=== PATIENT | male | born 1935 | race Caucasian/White ===

== ENCOUNTER 2016-11-21 21:05 | Inpatient (IN) | payer OTHER ==
[~2016-11-21] VITALS: Ht 172.7 cm; Wt 81.6 kg
--- NOTE | ~2016-11-21 | EKG ---
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
[~2016-11-21 21:05] MED LIST: BUSPIRONE HCL10 MG PO; CLARITIN10 MG PO; FLOMAX0.4 MG PO; IBUPROFEN 600600 M1 PO; LEXAPRO 10 MG T10 M1 PO; MILK OF MA2400 MG/10 PO; PEPTO-BISM262 MG/15 PO; TROSPIUM CHLORI20 MG PO; VIMPAT100 MG PO
[2016-11-21 21:07] VITALS: BP 169/81
[2016-11-21] MEDS ORDERED: MINERIN CREME454 GM TOP (21:15)
[2016-11-21] MEDS ORDERED: BISMATROL262 MG/15 PO (21:15)
[2016-11-21 21:17] LABS: ABSOLUTE NEUTROPHILS 2.8 thou/uL (1.4-8.2); BASOPHILS 0.6 % (0.0-2.0); EOSINOPHILS 3.2 % (0.0-3.0); HEMATOCRIT 37.4 % (42.0-52.0); HEMOGLOBIN 12.9 gm/dL (14.0-18.0); LYMPHOCYTES 42.2 % (24.0-44.0); MCH 31.4 pg (26.0-34.0); MCHC 34.5 g/dL (28.0-37.0); MCV 91.1 fL (80.0-100.0); MONOCYTES 9.9 % (1.0-8.0); PLATELET COUNT 184 thou/uL (150-400); POLYS 44.1 % (36.0-66.0); RBC 4.11 mil/uL (4.50-6.00); RDW 12.9 % (10.5-14.5); WBC 6.3 thou/uL (4.0-11.0)
[2016-11-21] MEDS ORDERED: SYSTANE ULTRA 010 ML OPHTHALMIC (21:19)
[2016-11-21] MEDS ORDERED: VITAMIN D2000 UNIT PO (21:19)
[2016-11-21 21:20] LABS: MANUAL DIFF NO
[2016-11-21] MEDS ORDERED: BUSPIRONE HCL15 MG PO ×2 (21:21→21:22)
[2016-11-21] MEDS ORDERED: PERIDEX 0.12%473 M1 SWISH&SPIT (21:27)
[2016-11-21 21:33] LABS: ALBUMIN 2.3 g/dL (3.4-5.0); ALKALINE PHOSPHATASE 92 U/L (46-116); ANION GAP 7 mmol/L (7-16); BUN 14 mg/dL (7-18); CHLORIDE 114 mmol/L (98-107); CO2 19 mmol/L (21-32); CREATININE 0.8 mg/dL (0.7-1.3); GLUCOSE 108 mg/dL (74-106); MAGNESIUM 1.2 mg/dL (1.8-2.4); SGOT 16 U/L (15-37); SGPT 25 U/L (30-65); SODIUM 140 mmol/L (136-145); TOTAL BILIRUBIN 0.2 mg/dL (<0.1-1.0); TOTAL PROTEIN 4.9 g/dL (6.4-8.2); TROPONIN-I < 0.04 ng/mL (<0.04-0.07)
[2016-11-21 21:35] LABS: CALCIUM 5.6 mg/dL (8.5-10.1); POTASSIUM 2.5 mmol/L (3.5-5.1)
[2016-11-21 22:56] LABS: URINE BILIRUBIN NEGATIVE (Negative); URINE BLOOD NEGATIVE (Negative); URINE COLOR YELLOW; URINE GLUCOSE-RANDOM* NEGATIVE (Negative); URINE KETONES NEGATIVE (Negative); URINE LEUKOCYTES-REFLEX NEGATIVE (Negative); URINE PROTEIN (DIPSTICK) NEGATIVE (Negative); URINE UROBILINOGEN 0.2 E.U./dl (0.2-1.0)
[2016-11-22] VITALS (7 sets, daily range): BP systolic 125–154; BP diastolic 71–86
[2016-11-22 06:41] LABS: HEMATOCRIT 38.7 % (42.0-52.0); HEMOGLOBIN 12.7 gm/dL (14.0-18.0); MCH 29.9 pg (26.0-34.0); MCHC 32.7 g/dL (28.0-37.0); MCV 91.3 fL (80.0-100.0); RBC 4.24 mil/uL (4.50-6.00); RDW 13.3 % (10.5-14.5); WBC 7.4 thou/uL (4.0-11.0)
[2016-11-22 06:54] LABS: ALBUMIN 3.3 g/dL (3.4-5.0); ALKALINE PHOSPHATASE 104 U/L (46-116); ANION GAP 5 mmol/L (7-16); BUN 12 mg/dL (7-18); CHLORIDE 105 mmol/L (98-107); CHOLESTEROL 143 mg/dL (<200); CO2 27 mmol/L (21-32); GLUCOSE 102 mg/dL (74-106); HDL CHOLESTEROL 36 mg/dL (>40); LDL CHOLESTEROL 75 mg/dL (<100); SGOT 23 U/L (15-37); SGPT 37 U/L (30-65); SODIUM 137 mmol/L (136-145); TOTAL BILIRUBIN 0.4 mg/dL (<0.1-1.0); TOTAL PROTEIN 6.9 g/dL (6.4-8.2); TRIGLYCERIDE 163 mg/dL (<150); VLDL 33 mg/dL (<40)
[2016-11-22 06:56] LABS: POTASSIUM 4.2 mmol/L (3.5-5.1)
[2016-11-22 06:59] LABS: CALCIUM 8.1 mg/dL (8.5-10.1)
[2016-11-23 01:06] LABS: GLYCOHEMOGLOBIN (HGB A1C) 5.4 % (4.8-5.6)
[2016-11-23 04:20] VITALS: BP 129/70
[2016-11-23 04:57] LABS: ABSOLUTE NEUTROPHILS 6.3 thou/uL (1.4-8.2); BASOPHILS 0.4 % (0.0-2.0); EOSINOPHILS 2.7 % (0.0-3.0); HEMATOCRIT 36.8 % (42.0-52.0); HEMOGLOBIN 12.6 gm/dL (14.0-18.0); LYMPHOCYTES 21.3 % (24.0-44.0); MCH 30.7 pg (26.0-34.0); MCHC 34.1 g/dL (28.0-37.0); MONOCYTES 9.9 % (1.0-8.0); PLATELET COUNT 180 thou/uL (150-400); POLYS 65.7 % (36.0-66.0); RBC 4.09 mil/uL (4.50-6.00); RDW 13.4 % (10.5-14.5); WBC 9.6 thou/uL (4.0-11.0)
[2016-11-23 05:00] LABS: MANUAL DIFF NO
[2016-11-23 05:10] LABS: CALCIUM 7.8 mg/dL (8.5-10.1); POTASSIUM 4.4 mmol/L (3.5-5.1); TOTAL BILIRUBIN 0.5 mg/dL (<0.1-1.0); TOTAL PROTEIN 6.5 g/dL (6.4-8.2)
[2016-11-23 07:16] VITALS: BP 109/44
[2016-11-23 09:01] LABS: TSH 0.922 uIU/mL (0.358-3.740)
[2016-11-23 14:09] LABS: FREE T4 1.03 ng/dL (0.82-1.77)
[2016-11-23 17:03] VITALS: BP 123/65
[2016-11-23 19:39] VITALS: BP 126/73
[2016-11-24 03:08] VITALS: BP 139/93
[2016-11-24 07:33] VITALS: BP 137/87
[2016-11-24 11:24] VITALS: BP 153/87
[2016-11-24] MEDS ORDERED: VIMPAT50 MG PO (11:53)
[2016-11-24 12:16] VITALS: BP 153/87
[2016-11-25 05:12] LABS: GLYCOHEMOGLOBIN (HGB A1C) 5.4 % (4.8-5.6)
== END 2016-11-24 14:50 | disposition home or self-care (01) | DRG 100 ==
LOC: ER 21:05 → EROBS 11-22 00:02 → 4W 11-22 00:02
PROVIDERS: Emergency Medicine; Internal Medicine; Nurse Practitioner Family; Psychiatry & Neurology Neurology
DX: R56.9 Unspecified convulsions (principal); G93.40 Encephalopathy, unspecified; E87.6 Hypokalemia; E83.42 Hypomagnesemia; R53.81 Other malaise; W18.39XA Other fall on same level, initial encounter; Y93.89 Activity, other specified; Z79.899 Other long term (current) drug therapy; Z88.8 Allergy status to other drugs, medicaments and biological substances; Y92.89 Other specified places as the place of occurrence of the external cause; Y99.8 Other external cause status
CPT/HCPCS: 10045

== ENCOUNTER 2017-02-12 09:23 | Emergency (ER) | payer OTHER ==
[~2017-02-12] VITALS: Ht 167.6 cm; Wt 63.5 kg
[~2017-02-12 09:23] MED LIST changes: +BISMATROL262 MG/15 PO; +BUSPIRONE HCL15 MG PO; +MINERIN CREME454 GM TOP; +PERIDEX 0.12%473 M1 SWISH&SPIT; +SYSTANE ULTRA 010 ML OPHTHALMIC; +VIMPAT50 MG PO; +VITAMIN D2000 UNIT PO
[2017-02-12] MEDS ORDERED: VENTOLIN HFA 1818 GM INH (10:12)
== END 2017-02-12 10:26 | disposition home or self-care (01) ==
LOC: EDBD 09:23 → ER 09:23
DX: T42.6X1A Poisoning by other antiepileptic and sedative-hypnotic drugs, accidental (unintentional), initial encounter (principal); T42.4X1A Poisoning by benzodiazepines, accidental (unintentional), initial encounter; J98.01 Acute bronchospasm; Z88.8 Allergy status to other drugs, medicaments and biological substances; Y92.89 Other specified places as the place of occurrence of the external cause

== ENCOUNTER 2017-08-03 11:49 | Inpatient (IN) | payer OTHER ==
[~2017-08-03] VITALS: Ht 175.3 cm; Wt 70.4 kg
[2017-08-03 11:49] VITALS: BP 146/89
[~2017-08-03 11:49] MED LIST changes: +VENTOLIN HFA 1818 GM INH
[2017-08-03 12:49] LABS: ABSOLUTE NEUTROPHILS 3.3 thou/uL (1.4-8.2); BASOPHILS 0.9 % (0.0-2.0); CALCIUM 8.8 mg/dL (8.5-10.1); CREATININE 1.3 mg/dL (0.7-1.3); EOSINOPHILS 5.6 % (0.0-3.0); HEMATOCRIT 41.6 % (42.0-52.0); HEMOGLOBIN 14.3 gm/dL (14.0-18.0); MCH 31.1 pg (26.0-34.0); MCHC 34.3 g/dL (28.0-37.0); MCV 90.7 fL (80.0-100.0); MONOCYTES 11.7 % (1.0-8.0); PLATELET COUNT 241 thou/uL (150-400); POLYS 46.8 % (36.0-66.0); POTASSIUM 4.5 mmol/L (3.5-5.1); RBC 4.59 mil/uL (4.50-6.00); RDW 13.3 % (10.5-14.5)
[2017-08-03 12:55] LABS: ALBUMIN 3.7 g/dL (3.4-5.0); TOTAL BILIRUBIN 0.4 mg/dL (<0.1-1.0); TOTAL PROTEIN 8.2 g/dL (6.4-8.2)
[2017-08-03 13:21] VITALS: BP 146/89
[2017-08-03 14:40] VITALS: BP 135/82
[2017-08-03 16:00] VITALS: BP 140/82
[2017-08-03] MEDS ORDERED: ARICEPT 5 MG TAB5 MG PO (16:06)
[2017-08-03] MEDS ORDERED: CERAVE237 ML TOP (16:07)
[2017-08-03] MEDS ORDERED: REMERON15 MG PO (16:08)
[2017-08-03] MEDS ORDERED: ENSURE PLUS237 ML PO ×2 (16:11→16:12)
[2017-08-03] MEDS ORDERED: HYDROXYZINE HCL10 M2 PO (16:13)
[2017-08-03] MEDS ORDERED: PETROLATUM TOP (16:14)
[2017-08-03] MEDS ORDERED: VIMPAT150 MG PO (16:15)
[2017-08-03 19:35] VITALS: BP 117/72
[2017-08-04 03:30] VITALS: BP 101/56
[2017-08-04 08:00] VITALS: BP 104/58
[2017-08-04 16:00] VITALS: BP 116/60
[2017-08-04 20:00] VITALS: BP 119/67
[2017-08-05 03:14] VITALS: BP 110/60
[2017-08-05 08:00] VITALS: BP 132/80
[2017-08-05] MEDS ORDERED: TAMIFLU30 MG PO (10:50)
[2017-08-05] MEDS ORDERED: ALBUTEROL2.5 MG/31 INH (14:25)
== END 2017-08-05 15:17 | disposition home or self-care (01) | DRG 153 ==
LOC: ER 11:49 → EROBS 13:12 → 4S 13:12 → EDBD 08-05 15:17 → 4S 08-05 15:17
PROVIDERS: Physician Assistant
DX: J11.1 Influenza due to unidentified influenza virus with other respiratory manifestations (principal); K21.9 Gastro-esophageal reflux disease without esophagitis; R56.9 Unspecified convulsions; Z79.899 Other long term (current) drug therapy; Z88.8 Allergy status to other drugs, medicaments and biological substances; Z87.891 Personal history of nicotine dependence
CPT/HCPCS: 10195

== ENCOUNTER 2017-09-10 13:05 | Emergency (ER) | payer OTHER ==
[~2017-09-10] VITALS: Ht 172.7 cm; Wt 69.8 kg
--- NOTE | ~2017-09-10 | EKG ---
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
[~2017-09-10 13:05] MED LIST changes: +ALBUTEROL2.5 MG/31 INH; +ARICEPT 5 MG TAB5 MG PO; +CERAVE237 ML TOP; +ENSURE PLUS237 ML PO; +HYDROXYZINE HCL10 M2 PO; +PETROLATUM TOP; +REMERON15 MG PO; +TAMIFLU30 MG PO; +VIMPAT150 MG PO
[2017-09-10 13:49] LABS: ABSOLUTE NEUTROPHILS 10.8 thou/uL (1.4-8.2); BASOPHILS 0.5 % (0.0-2.0); EOSINOPHILS 0.4 % (0.0-3.0); HEMATOCRIT 39.5 % (42.0-52.0); HEMOGLOBIN 13.1 gm/dL (14.0-18.0); LYMPHOCYTES 13.5 % (24.0-44.0); MCH 30.1 pg (26.0-34.0); MCHC 33.3 g/dL (28.0-37.0); MCV 90.2 fL (80.0-100.0); MONOCYTES 10.2 % (1.0-8.0); PLATELET COUNT 380 thou/uL (150-400); POLYS 75.4 % (36.0-66.0); RBC 4.37 mil/uL (4.50-6.00); RDW 12.7 % (10.5-14.5); WBC 14.3 thou/uL (4.0-11.0)
[2017-09-10 13:53] LABS: ANION GAP 9 mmol/L (7-16); BUN 20 mg/dL (7-18); CALCIUM 9.1 mg/dL (8.5-10.1); CHLORIDE 98 mmol/L (98-107); CO2 26 mmol/L (21-32); CREATININE 1.3 mg/dL (0.7-1.3); GLUCOSE 137 mg/dL (74-106); POTASSIUM 4.7 mmol/L (3.5-5.1); SODIUM 133 mmol/L (136-145)
[2017-09-10 14:03] LABS: TROPONIN-I < 0.04 ng/mL (<0.06)
[2017-09-10] MEDS ORDERED: ALBUTEROL2.5 MG/31 INH (14:39)
[2017-09-10] MEDS ORDERED: ZPAK PO (15:19)
== END 2017-09-10 15:25 | disposition home or self-care (01) ==
LOC: ER 13:05
PROVIDERS: Nurse Practitioner
DX: J18.9 Pneumonia, unspecified organism (principal); F17.210 Nicotine dependence, cigarettes, uncomplicated; Z88.8 Allergy status to other drugs, medicaments and biological substances

== ENCOUNTER 2017-09-11 15:26 | Inpatient (IN) | payer OTHER ==
[~2017-09-11] VITALS: Ht 165.1 cm; Wt 69.9 kg
--- NOTE | ~2017-09-11 | EKG ---
[address] 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
[~2017-09-11 15:26] MED LIST changes: +ZPAK PO
[2017-09-11 15:49] VITALS: BP 126/73
[2017-09-11 16:35] LABS: ABSOLUTE NEUTROPHILS 11.4 thou/uL (1.4-8.2); BASOPHILS 0.4 % (0.0-2.0); EOSINOPHILS 0.2 % (0.0-3.0); HEMATOCRIT 36.4 % (42.0-52.0); HEMOGLOBIN 12.2 gm/dL (14.0-18.0); LYMPHOCYTES 9.8 % (24.0-44.0); MCH 29.9 pg (26.0-34.0); MCHC 33.6 g/dL (28.0-37.0); MCV 88.8 fL (80.0-100.0); MONOCYTES 11.6 % (1.0-8.0); PLATELET COUNT 311 thou/uL (150-400); RBC 4.09 mil/uL (4.50-6.00); WBC 14.6 thou/uL (4.0-11.0)
[2017-09-11 17:34] LABS: CALCIUM 8.3 mg/dL (8.5-10.1); CREATININE 1.3 mg/dL (0.7-1.3); POTASSIUM 4.2 mmol/L (3.5-5.1)
[2017-09-11 18:11] VITALS: BP 126/73
[2017-09-11 19:31] VITALS: BP 129/70
[2017-09-11 21:00] VITALS: BP 140/78
[2017-09-12] VITALS: BP 104/53
[2017-09-12 04:00] VITALS: BP 116/64
[2017-09-12 04:41] LABS: ABSOLUTE NEUTROPHILS 13.3 thou/uL (1.4-8.2); BASOPHILS 0.2 % (0.0-2.0); HEMATOCRIT 34.7 % (42.0-52.0); HEMOGLOBIN 11.4 gm/dL (14.0-18.0); LYMPHOCYTES 5.6 % (24.0-44.0); MCH 29.5 pg (26.0-34.0); MCHC 32.9 g/dL (28.0-37.0); MCV 89.6 fL (80.0-100.0); MONOCYTES 4.1 % (1.0-8.0); PLATELET COUNT 322 thou/uL (150-400); POLYS 90.1 % (36.0-66.0); RBC 3.87 mil/uL (4.50-6.00); RDW 13.1 % (10.5-14.5); WBC 14.8 thou/uL (4.0-11.0)
[2017-09-12 04:51] LABS: CALCIUM 8.5 mg/dL (8.5-10.1); CREATININE 1.3 mg/dL (0.7-1.3); MAGNESIUM 2.3 mg/dL (1.8-2.4); POTASSIUM 4.2 mmol/L (3.5-5.1)
[2017-09-12 09:02] VITALS: BP 132/73
[2017-09-12 13:56] LABS: URINE BILIRUBIN NEGATIVE (Negative); URINE BLOOD NEGATIVE (Negative); URINE CLARITY CLEAR; URINE COLOR YELLOW; URINE GLUCOSE-RANDOM* 2+ (Negative); URINE KETONES NEGATIVE (Negative); URINE LEUKOCYTES NEGATIVE (Negative); URINE NITRITE NEGATIVE (Negative); URINE PROTEIN (DIPSTICK) 1+ (Negative); URINE SPECIFIC GRAVITY >= 1.030 (1.005-1.035); URINE UROBILINOGEN 0.2 E.U./dl (0.2-1.0)
[2017-09-12 14:06] LABS: BACTERIA 1-9 Few /HPF (None Seen); CASTS None Seen /LPF (None Seen); CRYSTALS None Seen /LPF (None Seen); SQUAMOUS 0-3 Few /LPF (0-3); URINE RBC None Seen /HPF (0-2); URINE WBC 0-5 Rare /HPF (0-5)
[2017-09-12 15:37] VITALS: BP 115/65
[2017-09-12 20:00] VITALS: BP 108/57
[2017-09-13 04:00] VITALS: BP 124/73
[2017-09-13 05:42] LABS: HEMATOCRIT 32.7 % (42.0-52.0); HEMOGLOBIN 10.8 gm/dL (14.0-18.0); MCH 29.5 pg (26.0-34.0); MCV 89.4 fL (80.0-100.0); RBC 3.66 mil/uL (4.50-6.00); RDW 12.8 % (10.5-14.5)
[2017-09-13 09:14] VITALS: BP 107/67
[2017-09-13 17:04] VITALS: BP 121/67
[2017-09-13 19:23] VITALS: BP 128/60
[2017-09-14 04:19] VITALS: BP 107/60
[2017-09-14 05:58] LABS: HEMATOCRIT 31.1 % (42.0-52.0); HEMOGLOBIN 10.5 gm/dL (14.0-18.0); MCH 30.2 pg (26.0-34.0); MCHC 33.8 g/dL (28.0-37.0); MCV 89.3 fL (80.0-100.0); RBC 3.48 mil/uL (4.50-6.00); RDW 12.9 % (10.5-14.5); WBC 12.6 thou/uL (4.0-11.0)
[2017-09-14 07:46] VITALS: BP 108/62
[2017-09-14] MEDS ORDERED: LEVAQUIN 500 M500 M2 PO (08:42)
[2017-09-14 11:39] VITALS: BP 103/58
[2017-09-16 03:08] LABS: ADENOVIRUS Negative (Negative); INFLUENZA A Negative (Negative); INFLUENZA B Negative (Negative); METAPNEUMOVIRUS Negative (Negative); PARAINFLUENZA 1 Negative (Negative); PARAINFLUENZA 2 Negative (Negative); PARAINFLUENZA 3 Negative (Negative); RHINOVIRUS Negative (Negative); RSV A Negative (Negative); RSV B Negative (Negative)
== END 2017-09-14 16:49 | disposition home or self-care (01) | DRG 871 ==
LOC: ER 15:26 → EROBS 16:58 → 4N 16:58
PROVIDERS: Hospitalist; Nurse Practitioner; Nurse Practitioner Family
DX: A41.9 Sepsis, unspecified organism (principal); J18.9 Pneumonia, unspecified organism; E43 Unspecified severe protein-calorie malnutrition; J90 Pleural effusion, not elsewhere classified; R29.6 Repeated falls; R56.9 Unspecified convulsions; I34.0 Nonrheumatic mitral (valve) insufficiency; J20.9 Acute bronchitis, unspecified; Z88.8 Allergy status to other drugs, medicaments and biological substances; Z87.891 Personal history of nicotine dependence; Z79.899 Other long term (current) drug therapy
CPT/HCPCS: 10790

== ENCOUNTER 2018-02-20 21:49 | Emergency (ER) | payer OTHER ==
[~2018-02-20] VITALS: Ht 162.6 cm; Wt 56.7 kg
--- NOTE | ~2018-02-20 | EKG ---
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
[~2018-02-20 21:49] MED LIST changes: +LEVAQUIN 500 M500 M2 PO
[2018-02-20 22:23] LABS: HEMATOCRIT 38.7 % (42.0-52.0); HEMOGLOBIN 13.4 gm/dL (14.0-18.0); MCH 31.3 pg (26.0-34.0); MCHC 34.6 g/dL (28.0-37.0); MCV 90.6 fL (80.0-100.0); PLATELET COUNT 221 thou/uL (150-400); RBC 4.27 mil/uL (4.50-6.00); RDW 13.1 % (10.5-14.5); WBC 6.9 thou/uL (4.0-11.0)
[2018-02-20 22:32] LABS: ANION GAP 5 mmol/L (7-16); BUN 20 mg/dL (7-18); CHLORIDE 102 mmol/L (98-107); CO2 28 mmol/L (21-32); CREATININE 1.2 mg/dL (0.7-1.3); GLUCOSE 131 mg/dL (74-106); POTASSIUM 4.2 mmol/L (3.5-5.1); SODIUM 135 mmol/L (136-145)
[2018-02-20 22:41] LABS: ALBUMIN 3.5 g/dL (3.4-5.0); MAGNESIUM 2.1 mg/dL (1.8-2.4); SGOT 31 U/L (15-37); SGPT 57 U/L (30-65); TOTAL BILIRUBIN 0.3 mg/dL (<0.1-1.0); TOTAL PROTEIN 7.8 g/dL (6.4-8.2); TROPONIN-I <0.06 ng/mL (<0.06)
[2018-02-20 23:00] LABS: ABSOLUTE NEUTROPHILS 3.9 thou/uL (1.4-8.2)
[2018-02-21 00:43] LABS: URINE BILIRUBIN NEGATIVE (Negative); URINE BLOOD NEGATIVE (Negative); URINE CLARITY CLEAR; URINE COLOR YELLOW; URINE GLUCOSE-RANDOM* NEGATIVE (Negative); URINE KETONES NEGATIVE (Negative); URINE LEUKOCYTES-REFLEX NEGATIVE (Negative); URINE NITRITE-REFLEX NEGATIVE (Negative); URINE PROTEIN (DIPSTICK) TRACE (Negative); URINE SPECIFIC GRAVITY >= 1.030 (1.005-1.035); URINE UROBILINOGEN 0.2 E.U./dl (0.2-1.0)
== END 2018-02-21 01:39 | disposition home or self-care (01) ==
LOC: ER 21:49
PROVIDERS: Emergency Medicine
DX: R53.1 Weakness (principal); Z87.891 Personal history of nicotine dependence; Z88.8 Allergy status to other drugs, medicaments and biological substances; Z90.49 Acquired absence of other specified parts of digestive tract

== ENCOUNTER 2018-05-12 08:28 | Emergency (ER) | payer OTHER ==
[~2018-05-12] VITALS: Ht 167.6 cm; Wt 68.0 kg
--- NOTE | ~2018-05-12 | EKG ---
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
[2018-05-12] MEDS ORDERED: TROSPIUM CHLORI60 MG PO (09:00)
[2018-05-12] MEDS ORDERED: SYMBICORT160 MCG/4. INH (09:02)
[2018-05-12 09:33] LABS: HEMATOCRIT 38.5 % (42.0-52.0); MCH 30.8 pg (26.0-34.0); MCHC 33.7 g/dL (28.0-37.0); MCV 91.4 fL (80.0-100.0); RBC 4.21 mil/uL (4.50-6.00); RDW 12.7 % (10.5-14.5); WBC 9.4 thou/uL (4.0-11.0)
[2018-05-12 09:36] LABS: ANION GAP 8 mmol/L (7-16); BUN 19 mg/dL (7-18); CALCIUM 8.9 mg/dL (8.5-10.1); CHLORIDE 100 mmol/L (98-107); CO2 25 mmol/L (21-32); CREATININE 1.3 mg/dL (0.7-1.3); GLUCOSE 150 mg/dL (74-106); POTASSIUM 4.2 mmol/L (3.5-5.1); SODIUM 133 mmol/L (136-145)
[2018-05-12 09:45] LABS: TROPONIN-I <0.06 ng/mL (<0.06)
[2018-05-12] MEDS ORDERED: ALBUTEROL2.5 MG/31 INH (11:42)
[2018-05-12] MEDS ORDERED: PREDNISONE 20 M20 M1 PO (11:42)
[2018-05-12 11:58] VITALS: BP 137/81
== END 2018-05-12 12:00 | disposition home or self-care (01) ==
LOC: ER 08:28
PROVIDERS: Emergency Medicine
DX: J20.8 Acute bronchitis due to other specified organisms (principal); Z88.8 Allergy status to other drugs, medicaments and biological substances; Z87.891 Personal history of nicotine dependence